=== PATIENT | male | born 1995 | race Caucasian/White ===

== ENCOUNTER 2018-03-26 21:38 | Emergency (ER) | payer OTHER ==
[2018-03-26 21:56] VITALS: BP 125/67
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
== END 2018-03-26 22:23 | disposition home or self-care (01) ==
LOC: CED 21:38
PROC: 0HQGXZZ Repair Left Hand Skin, External Approach (ICD-10-PCS; principal; 2018-03-26)
DX: S61.412A Laceration without foreign body of left hand, initial encounter (principal); W26.0XXA Contact with knife, initial encounter